=== PATIENT | female | born 1945 | race Caucasian/White ===

== ENCOUNTER → 2019-09-28 08:12 | Outpatient (CLI) | payer MEDICARE, OTHER, SELFPAY ==
--- NOTE | ~2019-09-28 | XR_ITS ---
XR shoulder LT min 2V DATE: 09/28/2019 08:31 INDICATION: Left shoulder pain TECHNIQUE: 4 views COMPARISON: None FINDINGS: There is severe joint space narrowing and prominent spurring at the left glenohumeral joint consistent with severe osteoarthritis. No fracture or dislocation, periosteal reaction or bone destruction. Osteopenia. Aortic calcification and tortuosity is noted. IMPRESSION: Severe osteoarthritis of left glenohumeral joint Osteopenia Reviewed, dictated and finalized at location B.
== END ==
PROVIDERS: PCP Family Medicine; Visit Provider Physician Assistant
DX: M19.012 Primary osteoarthritis, left shoulder (principal); M85.88 Other specified disorders of bone density and structure, other site
CPT/HCPCS: 73030

== ENCOUNTER → 2023-02-27 11:56 | Outpatient (CLI) | payer MEDICARE, SELFPAY ==
--- NOTE | ~2023-02-27 | XR_ITS ---
Right Knee Technique: AP, lateral, and sunrise views were obtained. Clinical History: Osteoarthritis Findings: No fracture or dislocation is seen. There is lateral compartment narrowing with lateral jaiden nt line osteophyte formation. There is moderate patellofemoral compartment spurring.. Soft tissues ar e unremarkable. No joint effusion is seen. Impression: Moderate to advanced degenerative change, especially of the lateral and patellofemoral compartment. Reviewed, dictated and finalized at location M. WELL SERVICE UNIT OPERATOR Impression: Moderate to advanced degenerative change, especially of the lateral and patello femoral compartment.
--- NOTE | ~2023-02-27 | XR_ITS ---
Left Knee Technique: AP, lateral, and sunrise views were obtained. Clinical History: Osteoarthritis Findings: No fracture or dislocation is seen. There is medial compartment narrowing, with medial join t line osteophyte formation. There is moderate patellofemoral compartment spurring. There is mild lat eral joint line spurring. Soft tissues are unremarkable. No joint effusion is seen. Impression: Advanced medial compartment degenerative change. Moderate patellofemoral compartment degenerative change. Mild lateral compartment degenerative change. Reviewed, dictated and finalized at location M. NK DASHBOARD DEVELOPER Impression: Advanced medial compartment degenerative change. Moderate patellofemoral compartment degenerative change. Mild lateral compartment degenerative change.
== END ==
PROVIDERS: PCP Family Medicine; Visit Provider Physician Assistant Medical
DX: M17.0 Bilateral primary osteoarthritis of knee (principal)
CPT/HCPCS: 73562

== ENCOUNTER 2023-04-29 11:53 | Outpatient (CLI) | payer MEDICARE, SELFPAY ==
--- NOTE | ~2023-04-29 | XR_ITS ---
EXAMINATION: XR lumbar spine 2-3V DATE: 04/29/2023 12:32 INDICATION: Low back pain TECHNIQUE: Anteroposterior and lateral views of the lumbar spine, and cone-down lateral view of the l umbosacral junction were obtained. COMPARISON: None. FINDINGS: There are changes of anterior and posterior fusion from L2 through L5. Bone alignment is no rmal. There is mild anterior wedging of L1. There is severe loss of intervertebral disc space height at L1-2 and L5-S1 as well as in the visualized lower thoracic spine. There are changes of left total hip arthroplasty. IMPRESSION: 1. Surgical changes of the lumbar spine and severe thoracic and lumbar spondylosis without acute find ings identified. Reviewed, dictated and finalized at location L. ROLOGIST IMPRESSION: 1. Surgical changes of the lumbar spine and severe thoracic and lumbar spondylo sis without acute findings identified.
--- NOTE | ~2023-04-29 | XR_ITS ---
AP and lateral views of the right hip Clinical history: Pain Findings: No acute fracture or dislocation is seen. Osseous alignment is anatomic. There is severe ri ght hip joint osteoarthritis, joint space, sclerotic change, bony productive change, and mild remodel ing of the femoral head. Soft tissues are unremarkable. Impression: Severe right hip joint arthritis, as detailed above. Reviewed, dictated and finalized at location M. ERCIAL REAL ESTATE AGENT Impression: Severe right hip joint arthritis, as detailed above.
== END 2023-04-29 11:54 | disposition home or self-care (01) ==
PROVIDERS: PCP Family Medicine; Visit Provider Family Medicine
DX: M47.894 Other spondylosis, thoracic region (principal); M47.896 Other spondylosis, lumbar region; M16.11 Unilateral primary osteoarthritis, right hip
CPT/HCPCS: 72100; 73502

== ENCOUNTER 2023-05-29 11:00 | Outpatient (RCR) | payer MEDICARE, SELFPAY ==
--- NOTE | 2023-04-17 13:52 | PTOPEVAL1 ---
Assessment and note entered by Oscar Kelly Evaluation Information Assessment Status Evaluation Diagnosis bilateral knee pain, right knee and left knee primary OA Onset 04/08/23 Subjective Information Pt. reports knee pain began several years ago. She states that pain is most notable with standing and walking. She reports that her knee pain is not as much as a concern, as her overall mobility. She reports that she can stand for a total of 15 -20 minutes prior to having to sit due to knee and back pain. She has an extensive hx of back problems and has had prior surgery. She notices that she is flexed over and desires to be able to stand taller. She reports that she does live alone and is able to complete all ADL's, just more slowly. She attempts to complete small yard work . She states that her goal is to be able to improve her walking and stand taller. Reported Pain Level Pain Score 0: Self Report Assessment PT Clinical Summary Pt. is a 77 year old female who enters the clinic with bilateral knee pain and OA. Pain appears to be least of the pt. concern on this date, as she is more concerned with functional mobility and balance. She currently presents with generalized l.e. weakness, impaired gait, impaired balance, and impaired postural awareness. Given pt. poor tolerance to standing activities, recommend treatment be provided in an aquatic environment initially to allow for improved tolerance to WB activities provided with buoyancy of the water. Skilled PT is recommended in order to allow for improved safety and efficiency with IADL performance. Plan of Care Interventions Aquatic Therapy,Gait Training,Neuro Re-education, Therapeutic Activities,Therapeutic Exercise PT Services Indicated Yes Treatment Frequency and 2x/week x 10 visits Duration These treatments will address the objective and functional deficits as defined above. The patient will be advanced safely and appropriately in order for the patient to progress towards his/her prior level of function. Additional exercises will be introduced and as well as a comprehensive home exercise program upon discharge, if needed, ?to ensure carryover of functional gains achieved in the clinic. This treatment plan has been reviewed and agreement upon by the patient.
--- NOTE | 2023-04-17 13:53 | OPREHPOC ---
Outpatient Therapy Plan of Care This is a Multidisciplinary Plan of Care that may contain components documented by all disciplines (PT, OT, and ST.) PT Problem 1 PT Problem #1 Knowledge Deficit PT Goal 1 Goal Independent with a HEP addressing l.e. strength and mobility. Target Visit 2 PT Problem 2 PT Problem #2 Impaired Balance PT Goal 1 Goal Improve her tinetti score to 19 or greater indicating improved safety and balance. Target Visit 10 PT Problem 3 PT Problem #3 Impaired Gait PT Goal 1 Goal Pt. will complete the 2 minute walk test over a distance of 300' indicating improved gait effiency . Target Visit 10 PT Problem 4 PT Problem #4 Impaired Functional Mobil PT Goal 1 Goal Pt. will be able to stand for duration of 30 minutes to 1 hour without rest due to pain for completing outdoor activities. Target Visit 10
--- NOTE | 2023-05-29 12:04 | PTOPDC ---
Assessment and note entered by Oscar Kelly Evaluation Information Assessment Status Discharge Diagnosis bilateral knee pain, right knee and left knee primary OA Onset 04/08/23 Subjective Information Pt. reports that she notices a slight improvement in regards to her strength. She states that she still has complication with pushing off her right leg, especially with going up steps. She denies any falls. She states that she will be traveling frequently over the next several months and is uncertain that she would be able to regularly attend therapy. Reported Pain Level Pain Score 3: Self Report Assessment PT Clinical Summary Pt. has demonstrated progress, however has not met all goals established at the initial evaluation. She continues to present with generalized weakness and balance deficits. She will be traveling in the next few months and will not be able to provide consistent attendance in regards to rehab. She is encouraged to continue with her HEP at this time and will be discharged from our care. Plan of Care PT Services Indicated No
== END 2023-05-29 14:04 | disposition home or self-care (01) ==
LOC: ANHPT 11:00
PROVIDERS: PCP Family Medicine; Visit Provider Orthopaedic Surgery
DX: M17.0 Bilateral primary osteoarthritis of knee (principal)
CPT/HCPCS: 97110; 97113; 97161; 97750

== ENCOUNTER 2023-07-17 09:09 | Outpatient (CLI) | payer MEDICARE, SELFPAY ==
--- NOTE | 2023-07-17 09:52 | ECG_ITS ---
SEE SCANNED COPY FOR CONFIRMED REPORT MTDD
[2023-07-17 10:24] LABS: Hematocrit 42.1 % (37.0-47.0); Hemoglobin 13.9 g/dL (12.0-15.0)
[2023-07-17 10:41] LABS: Albumin Level 4.4 g/dL (3.5-5.1); Estimated Glomerular Filt Rate > 60; Glucose 99 mg/dL (65-110)
== END 2023-07-17 09:10 | disposition home or self-care (01) ==
PROVIDERS: PCP Family Medicine; Visit Provider Orthopaedic Surgery
DX: Z01.818 Encounter for other preprocedural examination (principal); M16.11 Unilateral primary osteoarthritis, right hip; E78.5 Hyperlipidemia, unspecified; I10 Essential (primary) hypertension
CPT/HCPCS: 36415; 82040; 82565; 82947; 85014; 85018; 93005

== ENCOUNTER 2023-10-22 14:12 | Outpatient (CLI) | payer MEDICARE, SELFPAY ==
[2023-10-22 15:32] LABS: Basophils Percent Auto 0.6 % (0.2-1.2); Eosinophils Absolute Auto 0.1 K/mm3 (0-0.3); Eosinophils Percent Auto 1.1 % (0-4.4); Hematocrit 41.4 % (37.0-47.0); Hemoglobin 13.6 g/dL (12.0-15.0); Immature Granulocyte Absolute 0.01 K/mm3 (0.00-0.031); Immature Granulocyte Percent A 0.2 % (0-0.5); Lymphocytes Absolute Auto 1.37 K/mm3 (0.9-3.2); Lymphocytes Percent Auto 21.9 % (18.3-44.2); Mean Corpuscular HGB Conc 32.9 g/dl (32-36); Mean Corpuscular Hemoglobin 31.2 pg (26-34); Mean Platelet Volume 9.8 fl (7.4-10.4); Monocytes Absolute Auto 0.6 K/mm3 (0.1-0.6); Monocytes Percent Auto 9.7 % (2.6-8.5); Neutrophils Absolute Auto 4.2 K/mm3 (1.3-6.7); Neutrophils Percent Auto 66.5 % (45.5-73.1); Platelet Count Result 205 k/mm3 (150-375); Red Blood Count 4.36 M/mm3 (4.2-5.4); Red Cell Distribution Width 12.6 % (11.5-14.5); White Blood Count 6.3 K/mm3 (4.5-10.0)
[2023-10-22 15:41] LABS: Urine Cotinine NEGATIVE
[2023-10-22 15:43] LABS: Albumin Level 4.4 g/dL (3.5-5.1)
[2023-10-22 15:46] LABS: Anion Gap 8 mmol/L (4-12); Blood Urea Nitrogen 19 mg/dL (7-17); Calcium 10.2 mg/dL (8.4-10.2); Carbon Dioxide 29 mmol/L (22-30); Chloride 101 mmol/L (98-107); Estimated Glomerular Filt Rate > 60; Glucose 86 mg/dL (65-110); Potassium 4.1 mmol/L (3.4-5.0); Sodium 138 mmol/L (137-145)
[2023-10-22 16:22] LABS: Hemoglobin A1C 5.1 % (<5.7)
[2023-10-22 16:47] LABS: MRSA (PCR) NOT DETECTED (NOT DETECTE)
== END 2023-10-22 14:13 | disposition home or self-care (01) ==
LOC: ANHSURGERY 14:14
PROVIDERS: Anesthesiology; PCP Family Medicine; Visit Provider Orthopaedic Surgery
DX: M16.11 Unilateral primary osteoarthritis, right hip (principal); Z51.81 Encounter for therapeutic drug level monitoring; Z79.899 Other long term (current) drug therapy; Z01.818 Encounter for other preprocedural examination
CPT/HCPCS: 36415; 80048; 80307; 82040; 83036; 85025; 87641

== ENCOUNTER 2023-11-13 02:21 | Day surgery (SDC) | payer MEDICARE, SELFPAY ==
--- NOTE | 2023-10-22 14:15 | PC.NURSE ---
Report to the Outpatient Waiting Room, entrance under the green pavilion located off [facility], at time ___08:30am____ on date _11/13/23 . Planned Procedure Time: __10:30am . Time changes happen often and if your time is changed the preop area will call you the afternoon before. - You and your visitor will be asked to self-screen and do not enter if you have any COVID symptoms. - A mask is optional within the hospital at this time. Patients may have clear liquids (water, carbonated beverages, clear teas, apple juice) until 3 hours prior to surgery (0730am) with a maximum of 20 ounces. - No food from midnight until time of surgery Take the following medications with a SIP of water the morning of surgery: None DO NOT STOP ANY OF YOUR OTHER PRESCRIPTION MEDICATIONS PRIOR TO SURGERY ?EXCEPT THE FOLLOWING Medications to discontinue per physician Hold Aspirin for 7 days prior to surgery per Dr Johnson Date to take last dose 11/05/23 Please no make-up, nail nepali, hairspray, perfume, deodorant, or body powder the day of surgery. No jewelry (including any body piercings) or valuables the day of surgery, leave them at home. Please take a shower or bath the night before, or the morning of, surgery with an antibacterial soap. Wear comfortable, loose fitting clothing. Children are encouraged to wear pajamas. - Jewelry must be removed prior to entering the operating room. Rings and piercings that are not removed may be cut off. - The hospital will not accept responsibility for valuables. - Please leave all valuables, including medications, at home the day of surgery. If you are going home after surgery, a licensed cart driver must drive you home. - NO public transportation without another adult if you receive anesthesia. - We recommend that an adult stay with you for 24 hours following discharge. - We also recommend that you do not drive, make important decision, drink alcoholic beverages, or take any drugs that were not prescribed by your health care provider for at least 24 hours after your discharge time. Follow any additional instructions given to you from your surgeon. If you or anyone in your household have experienced Covid symptoms in the past week, please notify your surgeon or the nurse liaison at the phone number below for possible testing. Telephone instructions given to __patient and asked if any additional questions and then verbalized understanding. Patient advised to call surgeon office or pre surgery nurse liaison [phone] if any additional questions.
[2023-10-22 14:28] VITALS: BP 153/78; PULSE 69; RESP 16; TEMP 37.1; O2SAT 100; BMI 26.6
[2023-11-13] VITALS (16 sets, daily range): BP systolic 98–128; BP diastolic 37–65; PULSE 58–73; RESP 12–18; TEMP 36.1–36.9; O2SAT 97–100; BMI 26.1
--- NOTE | ~2023-11-13 | XR_ITS ---
EXAMINATION: XR hip RT min 2V DATE: 11/13/2023 09:50 INDICATION: Postoperative evaluation following right total hip arthroplasty TECHNIQUE: Anteroposterior and lateral views of the right hip were obtained. COMPARISON: 10/20/2023 FINDINGS: Noncemented right total hip arthroplasty which appears well seated in near-anatomic alignment. No fra cture. Expected soft tissue gas at the operative bed. Partially visualized combined instrumented ante rior and posterior spinal fusion in the lower lumbar spine. IMPRESSION: Expected appearance of a right total hip arthroplasty, negative for postoperative purposes. Reviewed, dictated and finalized at location A. IMPRESSION: Expected appearance of a right total hip arthroplasty, negative for postoperati ve purposes.
[2023-11-13] MEDS: LACTATED RINGERS 1,000 ML 30 ML IV CONT ×2 (06:30→09:30)
[2023-11-13] MEDS: ACETAMINOPHEN 500 MG TABLET 1000 MG PO (06:39)
[2023-11-13] MEDS: TRANEXAMIC ACID 1,000MG/ISO100 1,000 MG/100 ML BAG 200 MG IVPB (07:10)
--- NOTE | 2023-11-13 07:13 | WPDANESEPPF ---
Anes - Initial Pre Proc Eval Procedure: Operation Date: 11/13/23 07:30 Proposed Procedures p Right Total Hip Arthroplasty - Connor Johnson MD Date/Time: 11/13/23 07:13 Surgeon: Connor Johnson MD Pre Op Diagnosis: primary oa right hip Patient Data Age: 78 Gender: F Height: 1.59 m Weight: 67 kg Last Vital Signs Temp 98.7 F 10/22/23 14:28 Pulse 69 10/22/23 14:28 Resp 16 10/22/23 14:28 BP 153/78 H 10/22/23 14:28 Pulse Ox 100 10/22/23 14:28 O2 Del Method Room Air 10/22/23 14:28 Allergies Allergy/AdvReac Type Severity Reaction Status Date / Time No Known Allergies Allergy Verified 10/28/23 09:56 Home Medications Medication Instructions Recorded Confirmed Type aspirin 81 mg tablet,delayed 81 mg PO DAILY 03/12/19 10/28/23 History release (Aspir-) lisinopril 30 mg tablet 30 mg PO DAILY #90 tabs 10/28/23 10/28/23 Rx chlorthalidone 25 mg tablet 12.5 mg PO DAILY #45 tabs 10/30/23 Rx Laboratory Tests 11/13/23 06:25 Blood Type Pending Antibody Screen Pending Patient hx anesthesia problems: none Family hx anesthesia problems: none Results Review: All pre-operative results and documents have been reviewed as part of the pre-operative evaluation. [facility] Past Medical History Medical History Aortic calcification Gait disturbance HLD (hyperlipidemia) Left shoulder pain Osteoarthritis Osteoarthritis of left shoulder Osteopenia Wellness examination Surgical History Surgical History Status post lumbar spinal fusion Family History Family History Father Hypertension Family history of coronary artery disease Mother Hypertension Family history of coronary artery disease Social History Social History Smoking status: Never smoker Second hand tobacco smoke exposure: No Additional smoking assessment comments: No form of nicotine use Alcohol intake: never Drinks per week: 4 Alcohol use details: social drinker Substance use: never Substance use type: does not use Do You Feel Safe in your Home?: Yes Lack of Transportation: No Lack of Food: Never True Current Housing: I Have Housing Concerned About Future Housing: No Difficulty Paying Gas/Electric Bills: No Difficulty Paying for Meds: No Currently Unemployed: No Education: Bachelor's Degree Difficulty w/ Childcare or Family Care: No Living arrangements: alone Occupation/Education: retired Gender identity (if verbalized by the patient): Female Sexual Orientation (if Verbalized by the Patient): Straight or Heterosexual Spiritual care concerns: No Anes - Eval Final PreProcedure Day of Procedure 11/13/23 07:13 Patient weight: normal Heart: regular rate and rhythm Lungs: clear to auscultation Airway: Mallampati scale class II Neurological: alert and oriented Last oral intake: >/= 8 hours ASA classification: III Emergent: no Anesthetic plan: proceed Anesthesia type and monitoring: general ETT and standard monitoring Results Review: All pre-operative results and documents have been reviewed as part of the pre-operative evaluation. Informed Consent: The patient's anesthetic plan and its attendant risks and benefits were discussed with the patient/family/POA. Questions were solicited and answers provided to the satisfaction of the patient/family/POA.
--- NOTE | 2023-11-13 07:17 | WPDHPUPDATE1 ---
History and Physical Update Update Date/Time: 11/13/23 07:17 History and Physical has been reviewed, including an updated exam of the patient. There are NO changes in the patient's condition. Risks, benefits, and alternatives have been discussed and questions answered. Patient agrees to proceed with procedure.
[2023-11-13] MEDS: ceFAZolin 2 GM/D5W 50 ML 2 GM/50 ML BAG IVPB ×3 (07:38→22:45)
[2023-11-13] MEDS: SODIUM CHLORIDE 0.9% IV 37.7 ML, MORPHINE SULFATE INJ (*CRX) 2 MG, ROPivacaine HCL 1% 2... INFILTRATE (07:58)
[2023-11-13] MEDS: TRANEXAMIC ACID 1,000 MG/10 ML AMPUL 1000 MG IV PUSH (09:01)
--- NOTE | 2023-11-13 10:15 | W.PM.PROC2 ---
Procedure Note - Detailed Date of Procedure 11/13/23 Pre-op Diagnosis Degenerative arthritis right hip Post-op Diagnosis Other (1. Degenerative arthritis right hip 2. Complete abductor muscle gluteus medius tear) Procedure Performed 1. Right Total Hip Arthroplasty 2. Abductor muscle (gluteus medius) repair Surgeon Connor Johnson MD Anesthesia General Findings Complete tear and retraction of the gluteus medius noted. End-stage arthritis of the hip. Good bone quality. Leg lengthened slightly due to the leg being short preoperatively, and to improve stability, given the abductor weakness and failed lumbar back surgery. The acetabular component was placed in slight increased anteversion and decreased inclination to compensate for the lumbar spine deformity. The final construct was very stable without impingement. The abductor repair was with multiple 5. Ethibond sutures using the bone trough technique. Description of Procedure The patient was given preoperative antibiotics. A general anesthetic was administered. The patient was carefully placed in the lateral decubitus position on the PEG board. The shoulders and hips were carefully positioned for component and leg length positioning reference. The hip was prepped and draped in the usual sterile fashion. A longitudinal incision was created over the posterior aspect of the greater trochanter. Careful dissection was brought down through the deep fascia with electrocautery. A minimally invasive optimized posterior approach to the hip was performed. The short external rotators and capsule were taken down in an L-shaped capsulotomy. The tissue was tagged for later repair using number 2 high strength suture. The femoral neck was measured and taken in situ. The femoral head was removed. The acetabulum was carefully exposed. The inferior capsule was released. The labrum was resected. The acetabulum was sequentially reamed to the intended cup size. The cup was impacted into position with excellent press-fit. Typical anatomic landmarks, including the bony contact points as well as the inferior transverse acetabular ligament were used to confirm cup positioning with preoperative templating. Attention was turned to the femur, which was carefully exposed. The hip was reamed and then broached sequentially. Excellent press-fit was obtained with the broach. The hip was trialed. Measurements were utilized, including the lesser trochanter as well as the center of the femoral head and the tip of the trochanter, and excellent assessment of the offset and leg lengths were confirmed. The real component was impacted into position. Trialing confirmed appropriate leg length and offset with soft tissue balancing as well apparent feel of the leg, both at the knee and the heel. Soft tissues were assessed using the the iliotibial band. Reduction of the posterior capsule and external rotators were also used as a secondary assessment. The hip was copiously irrigated with pulsatile lavage periodically throughout the procedure. The real components were then assembled and reduced. The hip was stable throughout typical maneuvers, including extension, external rotation to 70 degrees, the position of sleep as well as flexion to 90 degrees with internal rotation past 40 degrees. The shake test confirmed stability without impingement. Osteophytes were removed as necessary. The entire gluteus medius was torn. There was a lateral section and a more anterior section. Three modified Adalberto-Jude 5. Ethibond sutures were placed in each section. A bone trough was placed laterally posteriorly, and another placed more anteriorly. Using a heavy large needle the sutures were passed through the trough and exited distally on the trochanter. The sutures were tied bringing the tendinous portion of the gluteus medius back to the bone trough without undue tension. A few [id number] sutures were also used. The repair was quite poe and
--- NOTE | 2023-11-13 10:55 | ADMGEN ---
This patient, Bridger Rodriguez, was admitted to 3 [facility] Surg Room 319-01. Patient/family oriented to hospital policies and general routines including ID bracelet, bed and alarms, visiting hours, pain management, procedures, bathroom and other care routines, personal items, smoking policy, room service/diet, and visiting hours. Information on how to activate the Rapid Response Team has been discussed. Patient/Family are encouraged to report perceived risks to care and to ask questions if they do not understand what they are told or what they should do.
[2023-11-13] MEDS: ACETAMINOPHEN 325 MG TABLET 650 MG PO ×3 (11:18→23:35)
[2023-11-13] MEDS: SODIUM CHLORIDE 0.9% IV 1,000 ML 125 ML IV CONT (11:18)
--- NOTE | 2023-11-13 15:35 | PCPTNOTE ---
On 11/13/23, the student, [Yasmin Denson], provided care and completed [facility] documentation on this patient. I have reviewed the student's documentation and agree with the findings.
[2023-11-13] MEDS: SENNA/DOCUSATE SODIUM TABLET 2 TAB PO (17:51)
[2023-11-14 04:32] VITALS: BP 117/54; PULSE 68; RESP 16; TEMP 37.6; O2SAT 96
[2023-11-14 06:27] LABS: Basophils Percent Auto 0.3 % (0.2-1.2); Eosinophils Percent Auto 0.3 % (0-4.4); Hematocrit 35.6 % (37.0-47.0); Hemoglobin 11.6 g/dL (12.0-15.0); Immature Granulocyte Absolute 0.04 K/mm3 (0.00-0.031); Immature Granulocyte Percent A 0.4 % (0-0.5); Lymphocytes Absolute Auto 0.85 K/mm3 (0.9-3.2); Lymphocytes Percent Auto 8.6 % (18.3-44.2); Mean Corpuscular HGB Conc 32.6 g/dl (32-36); Mean Corpuscular Hemoglobin 30.8 pg (26-34); Mean Corpuscular Volume 94.4 fl (80-100); Mean Platelet Volume 10.2 fl (7.4-10.4); Monocytes Absolute Auto 1.2 K/mm3 (0.1-0.6); Monocytes Percent Auto 11.9 % (2.6-8.5); Neutrophils Absolute Auto 7.8 K/mm3 (1.3-6.7); Neutrophils Percent Auto 78.5 % (45.5-73.1); Platelet Count Result 170 k/mm3 (150-375); Red Blood Count 3.77 M/mm3 (4.2-5.4); Red Cell Distribution Width 12.6 % (11.5-14.5); White Blood Count 9.9 K/mm3 (4.5-10.0)
[2023-11-14] MEDS: ACETAMINOPHEN 325 MG TABLET 650 MG PO ×2 (06:27→12:36)
[2023-11-14] MEDS: ceFAZolin 2 GM/D5W 50 ML 2 GM/50 ML BAG IVPB (06:27)
[2023-11-14 06:40] LABS: Anion Gap 6 mmol/L (4-12); Blood Urea Nitrogen 18 mg/dL (7-17); Calcium 9.1 mg/dL (8.4-10.2); Carbon Dioxide 26 mmol/L (22-30); Chloride 102 mmol/L (98-107); Estimated CRCL calculation 45 ml/min; Estimated Glomerular Filt Rate > 60; Glucose 109 mg/dL (65-110); Potassium 3.7 mmol/L (3.4-5.0); Sodium 134 mmol/L (137-145)
[2023-11-14 08:15] VITALS: BP 136/53; PULSE 75; RESP 14; TEMP 36.8; O2SAT 95
[2023-11-14] MEDS: ASPIRIN 81 MG ENTERIC TABLET PO (08:25)
[2023-11-14] MEDS: CHLORTHALIDONE 12.5 MG TAB PO (08:25)
[2023-11-14] MEDS: SENNA/DOCUSATE SODIUM TABLET 2 TAB PO (08:25)
[2023-11-14] MEDS: lisinopriL 10 MG TABLET 30 MG PO (08:26)
[2023-11-14] MEDS: polyethylene glycoL 3350 17 GM POWD.PACK PO (08:26)
--- NOTE | 2023-11-14 09:09 | PM.DS ---
DS: Admitting Diagnosis Discharge Date 11/14/23 Admitting Diagnosis Right hip arthritis. DS: Discharge Diagnosis Discharge Diagnosis Plan Status post right total hip arthroplasty and gluteus medius abductor muscle repair. DS: Summary Hospital Course Reason for hospitalization: Total hip arthroplasty. Hospital Course: Tolerated surgery well. Progressed appropriately with therapy. Status at Discharge Functional status at discharge: uses cane/walker Overall status at discharge: patient is progressing back to baseline Time Spent with Patient Time attestation: Total time spent providing and/or coordinating discharge services: Exam Const: General: no acute distress Resp: Effort & Inspection: normal respiratory effort Skin: Other: Wound healing well. Mepilex dressing intact. No hematoma or drainage. Neuro: Sensory Exam: normal sensation Psych: Mental Status: mental status grossly normal Speech and movement: Normal speech and movement present DS: Data Data Completed and Pending Labs on day of discharge: Labs from last 24 hours 11/14/23 05:58 WBC 9.9 RBC 3.77 L Hgb 11.6 L Hct 35.6 L MCV 94.4 MCH 30.8 MCHC 32.6 RDW 12.6 Plt Count 170 MPV 10.2 Immature Gran % (Auto) 0.4 Neut % (Auto) 78.5 H Lymph % (Auto) 8.6 L Burke % (Auto) 11.9 H Eos % (Auto) 0.3 Baso % (Auto) 0.3 Lymph # (Auto) 0.85 L Burke # (Auto) 1.2 H Eos # (Auto) 0.0 Baso # (Auto) 0.0 Abs Immat Gran (auto) 0.04 H Absolute Neuts (auto) 7.8 H Absolute Nucleated RBC 0.000 Nucleated RBC % 0.0 Sodium 134 L Potassium 3.7 Chloride 102 Carbon Dioxide 26 Anion Gap 6 BUN 18 H Creatinine 0.70 Estim Creat Clear Calc 45 Estimated GFR > 60 Glucose 109 Calcium 9.1 Discharge Plan Discharge Patient Disposition: Home, Self-Care Discharge Instructions: See instruction sheet. Stand Alone Forms: General Discharge Instructions Follow-up/Referrals: Connor Johnson MD [Physician] - Discharge Medications: New hydrocodone-acetaminophen 5-325 mg tablet 1 - 2 tablet PO Q4H MDD 8 tablets PRN (Reason: pain) Qty: 14 0RF Continued aspirin [Aspir-81] 81 mg tablet,delayed release (DR/EC) 81 mg PO DAILY lisinopril 30 mg tablet 30 mg PO DAILY Qty: 90 3RF chlorthalidone 25 mg tablet 12.5 mg PO DAILY Qty: 45 3RF Rx Instructions: Take one half tablet daily Attending physician on admission: Connor Johnson
--- NOTE | 2023-11-14 10:32 | P.PNAN_ITS ---
Anes - Prog Note Post-Op Date/Time: 11/14/23 10:32 Cardiovascular status: normal Respiratory status: normal Airway patency: baseline Mental status: baseline Post-Op hydration status: normal Vital Signs: Last Vital Signs Temp 36.8 C 11/14/23 08:15 Pulse 75 11/14/23 08:15 Resp 14 11/14/23 08:15 BP 136/53 L 11/14/23 08:15 Pulse Ox 95 11/14/23 08:15 O2 Del Method Room Air 11/14/23 08:00 O2 Flow Rate 8 11/13/23 09:45 Pain Score (VAS): 05/17 I/O: Intake & Output 11/13/23 11/14/23 11/14/23 23:59 07:59 15:59 Intake Total 550 800 250 Balance 550 800 250 Laboratory Tests 11/14/23 05:58 11/14/23 05:58 11/14/23 05:58 WBC 9.9 RBC 3.77 L Hgb 11.6 L Hct 35.6 L MCV 94.4 MCH 30.8 MCHC 32.6 RDW 12.6 Plt Count 170 MPV 10.2 Immature Gran % (Auto) 0.4 Neut % (Auto) 78.5 H Lymph % (Auto) 8.6 L Cotton % (Auto) 11.9 H Eos % (Auto) 0.3 Baso % (Auto) 0.3 Lymph # (Auto) 0.85 L Cotton # (Auto) 1.2 H Eos # (Auto) 0.0 Baso # (Auto) 0.0 Abs Immat Gran (auto) 0.04 H Absolute Neuts (auto) 7.8 H Absolute Nucleated RBC 0.000 Nucleated RBC % 0.0 Sodium 134 L Potassium 3.7 Chloride 102 Carbon Dioxide 26 Anion Gap 6 BUN 18 H Creatinine 0.70 Estim Creat Clear Calc 45 Estimated GFR > 60 Glucose 109 Calcium 9.1 Post-procedural complaints: none Patient Feedback: Patient satisfied with anesthetic care.
== END 2023-11-14 13:00 | disposition home or self-care (01) ==
LOC: ANHSURGERY 05:57 → ANH3MEDSUR 10:53
PROVIDERS: PCP Family Medicine; Visit Provider Orthopaedic Surgery
PROC: (CPT 27130; principal; 2023-11-13 07:30)
DX: M16.11 Unilateral primary osteoarthritis, right hip (principal); E78.5 Hyperlipidemia, unspecified; Z79.82 Long term (current) use of aspirin; Z98.1 Arthrodesis status
CPT/HCPCS: 27130; 36415; 73502; 80048; 80307; 82040; 83036; 85025; 86850; 86900; 86901; 87641; 97110; 97116; 97161; 97165; 97530; 97535; A9270; C1776; J0171; J0690; J1100; J1170; J1885; J2270; J2405; J2704; J2795; J3010; J7030; J7120

== ENCOUNTER 2023-12-03 07:35 | Outpatient (CLI) | payer MEDICARE, SELFPAY ==
--- NOTE | ~2023-12-03 | XR_ITS ---
XR hip RT 2V w AP pelvis 12/03/2023 07:53 Indication: Right hip arthroplasty. 3 weeks postop. Procedure: AP pelvis and 2 views right hip Comparison: 11/13/2023 Findings: There is a right total hip arthroplasty. Prosthesis well seated. No underlying fracture or traumatic malalignment. There is also a left hip arthroplasty. There are surgical fusion changes of t he lumbar spine partially visualized. No significant soft tissue abnormality. Impression: 1: No acute bone or joint abnormality. Reviewed, dictated and finalized at location B. Impression: 1: No acute bone or joint abnormality.
== END 2023-12-03 07:36 | disposition home or self-care (01) ==
PROVIDERS: PCP Family Medicine; Visit Provider Physician Assistant Surgical
DX: Z96.641 Presence of right artificial hip joint (principal)
CPT/HCPCS: 73502

== ENCOUNTER 2024-03-25 09:45 | Outpatient (RCR) | payer MEDICARE, SELFPAY ==
--- NOTE | 2024-02-17 11:09 | OPREHPOC ---
Outpatient Therapy Plan of Care This is a Multidisciplinary Plan of Care that may contain components documented by all disciplines (PT, OT, and ST.) PT Problem 1 PT Problem #1 Knowledge Deficit PT Goal 1 Goal / Goal Update 1. Patient will perform independent HEP Target Visit 4 PT Problem 2 PT Problem #2 Impaired Gait PT Goal 1 Goal / Goal Update 1. Pt will ambulate 200+ feet on 2 minute walk test with least restrictive device Target Visit 10 PT Problem 3 PT Problem #3 Impaired Functional ADLs PT Goal 1 Goal / Goal Update 1. Patient will ambulate 1 flight of stairs with reciprocal pattern for safety doing laundry at home 2. Patient will able to navigate the grocery store without reported limitation Target Visit 10 PT Problem 4 PT Problem #4 Impaired Strength PT Goal 1 Goal / Goal Update 1. Patient will demonstrate 4+/5 LE strength in all planes gerardo for function at home Target Visit 10
--- NOTE | 2024-02-17 11:10 | PTOPEVAL1 ---
Assessment and note entered by Annemarie Quevedo DPT Evaluation Information Assessment Status Evaluation Diagnosis z96.641 ICD-10 Condition Codes (PT) Difficulty Walking R26.2,Weakness R53.1,Aftercare following joint replacement surgery Z47.1 Subjective Information Pt is s/p R SAHRA 11/13/23. States she also had to have glute med reattached as well and then could not do anything for awhile. Went back to end of January and was released , no more hip precautions. No home health PT. No recent hip pain . Using a straight cane and sometimes a walker for distances and used those devices prior to surgery as well. Prior to surgery patient was riding a stationary bike and 3-wheel bike outside but has not yet done those. Has been able to navigate basement stairs to laundry utilizing the railing and doing 1 step at a time. States she needs more time to navigate stairs as well. Previously was able to use reciprocal pattern. In general thinks her endurance is less than it used to be and has more difficulty walking in a grocery store. Difficulty bending over or lifting anything. History of spinal stenosis with surgery, patient ambulates with significant forward flexion. Patient goal: walk better, do stairs, ride bikes for exercise Returns to [place] in May Reported Pain Level Pain Score 0: Self Report Assessment PT Clinical Summary The patient is presenting to skilled therapy s/p R SAHRA with glute med reattachment in November. She presents with significantly decreased hip strength R>L, decreased gait speed and impaired gait and stair pattern. These impairments are contributing to her difficulty performing activities at her prior level including navigating stairs to her basement laundry or grocery shopping. She will highly benefit from therapy to address strength and gait in order to safely return to full function. Plan of Care Interventions Electrical Stimulation,Gait Training,Hot Pack/Cold Pack,Manual Therapy,Neuro Re-education,Patient/ Caregiver Education,Therapeutic Activities, Therapeutic Exercise PT Services Indicated Yes Treatment Frequency and 2 times a week for 10 visits Duration These treatments will address the objective and functional deficits as defined above. The patient will be advanced safely and appropriately in order for the patient to progress towards his/her prior level of function. Additional exercises will be introduced and as well as a comprehensive home exercise program upon discharge, if needed, ?to ensure carryover of functional gains achieved in the clinic. This treatment plan has been reviewed and agreement upon by the patient.
--- NOTE | 2024-03-25 10:32 | OPREHPOC ---
Outpatient Therapy Plan of Care This is a Multidisciplinary Plan of Care that may contain components documented by all disciplines (PT, OT, and ST.) PT Problem 1 PT Problem #1 Knowledge Deficit PT Goal 1 Goal / Goal Update 1. Patient will perform independent HEP Target Visit 4 Progress Met PT Problem 2 PT Problem #2 Impaired Gait PT Goal 1 Goal / Goal Update 1. Pt will ambulate 200+ feet on 2 minute walk test with least restrictive device Target Visit 10 Progress Met PT Problem 3 PT Problem #3 Impaired Functional ADLs PT Goal 1 Goal / Goal Update 1. Patient will ambulate 1 flight of stairs with reciprocal pattern for safety doing laundry at home 2. Patient will able to navigate the grocery store without reported limitation Target Visit 10 Progress Met PT Problem 4 PT Problem #4 Impaired Strength PT Goal 1 Goal / Goal Update 1. Patient will demonstrate 4+/5 LE strength in all planes gerardo for function at home Target Visit 10 Progress Met
--- NOTE | 2024-03-25 10:32 | PTOPDC ---
Assessment and note entered by Derik Brooks, PT Evaluation Information Assessment Status Discharge Diagnosis z96.641 ICD-10 Condition Codes (PT) Difficulty Walking R26.2,Weakness R53.1,Aftercare following joint replacement surgery Z47.1 Subjective Information Reports that she feels she is doing majority of things that she needs to without pain. She has been much more active with walking and feels very comfortable with current exercise program. Feels ready for discharge at this time with no concerns. Reported Pain Level Pain Score 0: Self Report Pain Score 2: Self Report Additional Pain Score Comments pain in both knees Assessment PT Clinical Summary Patient has met all goals for therapy and is suitable for discharge to [facility] at this time. No concerns with HEP as she has reflected understanding and compliance. Plan of Care PT Services Indicated Yes
== END 2024-03-25 15:18 | disposition home or self-care (01) ==
LOC: ANHPT 09:45
PROVIDERS: PCP Family Medicine; Visit Provider Orthopaedic Surgery
DX: Z47.1 Aftercare following joint replacement surgery (principal); R53.1 Weakness; R26.2 Difficulty in walking, not elsewhere classified; Z96.641 Presence of right artificial hip joint
CPT/HCPCS: 97110; 97140; 97161; 97530

== ENCOUNTER 2024-10-11 14:14 | Emergency (ER) | payer MEDICARE, SELFPAY ==
--- NOTE | 2024-10-11 14:23 | ED_ITS ---
HPI - Extremity Injury (Lower) General Chief Complaint: Wound/Laceration Stated Complaint: Injured Knee Time Seen by Provider: 10/11/24 14:24 Source: patient, RN notes reviewed and old records reviewed Mode of arrival: ambulatory Limitations: no limitations History of Present Illness HPI Narrative: 79-year-old female presents to the [facility] with a skin tear right lower leg Occurred when her flower table or box fell over. 9 x 7 cm skin tear, bleedings controlled. Up-to-date on Tdap, reports last Tdap was in 04/27/2023 Onset (ago): hour(s) Treatments prior to arrival: bandage Related Data Home Medications ?Medication ?Instructions ?Recorded ?Confirmed ?Last Taken ?Type aspirin 81 mg tablet,delayed 81 mg PO DAILY 03/12/19 10/11/24 11/05/23 History release (Aspir-) Allergies Allergy/AdvReac Type Severity Reaction Status Date / Time No Known Allergies Allergy Verified 10/11/24 14:22 Review of Systems Review of Systems: All systems reviewed & are unremarkable except as noted in HPI and below Constitutional: Constitutional: Reports no additional constitutional complaints Musculoskeletal: Musculoskeletal: Reports no additional musculoskeletal complaints Integumentary/Breasts: Skin/Breast: Reports as per HPI and Reports wounds PMFSH Past Medical History Medical History Gait disturbance Osteopenia Osteoarthritis of left shoulder Aortic calcification Left shoulder pain Osteoarthritis HLD (hyperlipidemia) Wellness examination Surgical History Surgical History Status post total hip replacement, right (~11/13/23) Status post lumbar spinal fusion Family History Family History Father Hypertension Family history of coronary artery disease Mother Hypertension Family history of coronary artery disease Social History Social History Smoking status: Never smoker Second hand tobacco smoke exposure: No Additional smoking assessment comments: No form of nicotine use Alcohol intake: current Drinks per week: 2 Alcohol use details: social drinker Substance use: never Substance use type: does not use Do You Feel Safe in your Home?: Yes Lack of Transportation: No Lack of Food: Never True Current Housing: I Have Housing Concerned About Future Housing: No Difficulty Paying Gas/Electric Bills: No Difficulty Paying for Meds: No Currently Unemployed: No Education: Decline to Answer Difficulty w/ Childcare or Family Care: No Living arrangements: alone Occupation/Education: retired Gender identity (if verbalized by the patient): Female Sexual Orientation (if Verbalized by the Patient): Straight or Heterosexual Spiritual care concerns: No Comments At the time of my signature, I reviewed and agree with the nursing past medical, surgical, social, and family history. There is no relevant family history pertinent to the patient complaint. Exam Const: General: cooperative, healthy appearing, comfortable, no acute distress, well developed, alert and well nourished Nutritional Appearance: well nourished Orientation/consciousness: patient oriented x3 Limitations: no limitations HENMT: Head: normal to inspection Eyes: General: appearance normal, both eyes and all related structures Alignment and Position: alignment normal Neck: Neck: normal visual inspection, full ROM, no lymphadenopathy and no meningeal signs Chest: Chest palpation & inspection: normal inspection of the chest Resp: Effort & Inspection: normal respiratory effort and able to speak in complete sentences Cardio: Rate: regular rate Skin: General skin exam: normal color and no rashes or lesions noted Wounds: wounds noted (Skin tear 9 x 7 cm right lower leg, anterior lateral) Neuro: General: patient oriented x3, gait normal, moves all extremities and no meningeal signs Cognition (Neuro): normal cognition Speech: normal speech Gait exam (Neuro): Normal gait present Extrem: General: normal to inspection, full ROM, capillary refill normal and normal gait Psych: Appearance: grossly normal and well kempt Mental Status: mental status grossly normal Speech and movement: Normal speech and movement present and Clear speech present Affect: normal affect Attitude: cooperative Course Course Emergency Course: Patient presents with a large skin tear, discussed leaving open, using Steri- Strips, using Steri-Strips and sutures to approximate wound. Due to the amount swelling unable to completely approximate the wound Large hematoma is noted Has full range of motion of the ankle, knee. Area cleaned with wound cleanser, irrigated with 400 mils of saline Injected multiple areas with lidocaine, used Steri-Strips and sutures to bring wound closer together to help with the healing process, covering with antibiotics 6 sutures placed Patient already with appointment with primary care provider on the Patient appropriate for outpatient treatment with close follow-up Discharge instructions reviewed with patient, as well as provided in writing per nursing staff. The instructions also include specific and strict return/GO TO THE ER as well as f/u information. All questions have been answered, and the patient deny any further questions with discharge and discharge plan. Some parts of this dictation were generated by voice recognition software and may contain typographical and/or grammatical inaccuracies. Level of Care: Express Care Visit Vital Signs Vital signs: Vital Signs Temperature 98.5 F 10/11/24 14:24 Pulse Rate 97 10/11/24 14:24 Respiratory Rate 18 10/11/24 14:24 Blood Pressure 171/103 H 10/11/24 14:24 Pulse Oximetry 99 10/11/24 14:24 Oxygen Delivery Room Air 10/11/24 14:24 Temperature 98.5 F 10/11/24 14:24 Pulse Rate 97 10/11/24 14:24 Respiratory Rate 18 10/11/24 14:24 Blood Pressure 171/103 H 10/11/24 14:24 Pulse Oximetry 99 10/11/24 14:24 Oxygen Delivery Room Air 10/11/24 14:24 Reviewed MDM - Extremity Injury (Lower) Differential Diagnosis Differential diagnosis: Likely other (One laceration, abrasion, skin tear) Critical Care Time Critical Care Time Critical Care Time: No Discharge Plan Discharge Clinical Impression: Skin tear of right lower leg without complication Qualifiers: Encounter type: initial encounter Qualified Code(s): S81.811A - Laceration without foreign body, right lower leg, initial encounter Patient Disposition: Home Condition: Stable Instructions: Antibiotic Form, Skin Tear (ED) Additional Instructions: Wash area twice a day with warm soapy water, pat dry. Start tomorrow, leave the Iban wrap and the dressing on until tomorrow Follow up with Dr. Stewart as you are already scheduled on the 26 of October Today your blood pressure was 171/103. Take Tylenol as needed for pain, per package instructions Follow-up with Dr. Stewart in 2 weeks to have the sutures possibly removed Take antibiotic to reduce the chances of infection For worsening symptoms go directly to the emergency room Patient Language: Chinese Prescriptions: New cephalexin 500 mg capsule 500 mg PO Q12H Qty: 14 0RF No Action aspirin [Aspir-81] 81 mg tablet,delayed release (DR/EC) 81 mg PO DAILY lisinopril 30 mg tablet 30 mg PO DAILY Qty: 90 3RF chlorthalidone 25 mg tablet 12.5 mg PO DAILY Qty: 45 3RF Rx Instructions: Take one half tablet daily Follow-up/Referrals: Issac Stewart MD [Primary Care Provider] - 2 Weeks ([facility] follow up blood pressure check. ) Time of Disposition: 15:28
[2024-10-11 14:24] VITALS: BP 171/103; PULSE 97; RESP 18; TEMP 36.9; O2SAT 99
[2024-10-11] MEDS: LIDOCAINE 1% LOCAL INJ 2 ML AMPUL 10 ML INFILTRATE (14:40)
== END 2024-10-11 15:35 | disposition home or self-care (01) ==
PROVIDERS: Emergency Provider Nurse Practitioner; PCP Family Medicine
DX: S81.811A Laceration without foreign body, right lower leg, initial encounter (principal); X58.XXXA Exposure to other specified factors, initial encounter; E78.5 Hyperlipidemia, unspecified; I70.0 Atherosclerosis of aorta; M19.012 Primary osteoarthritis, left shoulder; M85.80 Other specified disorders of bone density and structure, unspecified site; Z96.641 Presence of right artificial hip joint; Z79.82 Long term (current) use of aspirin
CPT/HCPCS: 12001; 99213; G0463; J2003